=== PATIENT | male | born 1980 | race Caucasian/White ===

== ENCOUNTER 2023-08-20 16:10 | Emergency (ER) | payer OTHER ==
[~2023-08-20] VITALS: Ht 182.9 cm; Wt 68.0 kg
[~2023-08-20 16:10] MED LIST: ALBU90I INH; ALBU90OI INH; AMOX500 PO; AZIT250 PO; Amoxicillin500 MG PO; CODACEE120 PO; CRUTCH3 USE; CRUTCH3 XX; CRUTCH4 USE; CYCL10 PO; DIAZ5 PO; Esgic Tablet1 EACH PO; HYDACE5 PO; HYDR1TAB94 PO; IBUP400 PO; IBUP800 PO; Indomethacin50 MG PO; MAGIC MOUTHWASH; METO10 PO; NAPR220 PO; NAPR500 PO; Naprosyn500 MG PO; Norco 5-325 Ta1 EACH PO; PENVK500 PO; PRED15SY PO; PRED20 PO; PROM25 PO; Percocet 5-3251 EACH PO; Prednisone20 MG PO; RXONDA4ODT MM; RXPROM25 PO; Robaxin500 MG PO; SULTRIDS PO; TRAM50 PO; Ultram50 MG PO; Valium5 MG PO; Zofran8 MG PO
[2023-08-20 16:28] VITALS: BP 131/69
[2023-08-20 16:51] LABS: BASOPHILS ABSOLUTE AUTO 0.06 K/mm3 (0.00-0.23); BASOPHILS PERCENT AUTO 1 % (0-2); EOSINOPHILS ABSOLUTE AUTO 0.36 K/mm3 (0.00-0.68); EOSINOPHILS PERCENT AUTO 6 % (0-6); Hematocrit 34.8 % (37.0-53.0); Hemoglobin 11.1 g/dL (13.5-17.5); IMMATURE GRAN ABSOLUTE AUTO 0.03 K/mm3 (0.00-0.10); IMMATURE GRAN PERCENT AUTO 1 % (0-1); LYMPHOCYTES ABSOLUTE AUTO 1.47 K/mm3 (0.84-5.20); LYMPHOCYTES PERCENT AUTO 24 % (21-46); MONOCYTES ABSOLUTE AUTO 0.46 K/mm3 (0.16-1.47); MONOCYTES PERCENT AUTO 7 % (4-13); Mean Corpuscular HGB 26.9 pg (26.0-34.0); Mean Corpuscular HGB Conc 31.9 g/dL (31.5-36.5); Mean Corpuscular Volume 85 fL (80-100); Mean Platelet Volume 9.1 fL (9.1-12.4); NEUTROPHILS ABSOLUTE AUTO 3.86 K/mm3 (1.96-9.15); NEUTROPHILS PERCENT AUTO 62 % (41-73); Platelet Count 308 K/mm3 (150-400); RDW Coefficient Variation 16.1 % (11.7-14.2); RDW Standard Deviation 49.8 fL (35.1-46.3); Red Blood Cell Count 4.12 M/mm3 (4.30-5.90); White Blood Cell Count 6.24 K/mm3 (4.00-11.30)
[2023-08-20 17:02] LABS: Albumin, Blood 2.8 g/dL (3.4-5.0); Albumin/Globulin Ratio 0.8 (0.8-1.8); Bilirubin, Total 0.3 mg/dL (0.1-1.0); Bun/Creatinine Ratio 13.2 (12.0-20.0); Calcium, Blood 8.1 mg/dL (8.5-10.1); Creatinine, Blood 0.83 mg/dL (0.60-1.20); Globulin, Blood 3.4 g/dL (2.2-4.0); Potassium, Blood 3.3 mmol/L (3.5-5.5); Total Protein, Blood 6.2 g/dL (6.4-8.2)
[2023-08-20] MEDS ORDERED: Calcium Carbonate 500 MG Tab Chew PO ONE (17:10)
[2023-08-20] MEDS ORDERED: Potassium Chloride 20 MEQ TabCR PO ONE (17:10)
[2023-08-20] MEDS ORDERED: RX Prepack 2 Sprays Naloxone HCL 4 MG/SPRAY UD ONE (18:45)
== END 2023-08-20 19:10 | disposition home or self-care (01) ==
LOC: ER 16:10
PROVIDERS: Emergency Medicine
DX: T40.411A Poisoning by fentanyl or fentanyl analogs, accidental (unintentional), initial encounter (principal); F15.90 Other stimulant use, unspecified, uncomplicated; F17.200 Nicotine dependence, unspecified, uncomplicated
CPT/HCPCS: 80053; 85025; 93005; 93010; 99284-25; A9270

== ENCOUNTER 2023-09-04 13:22 | Emergency (ER) | payer SELFPAY ==
[~2023-09-04] VITALS: Ht 182.9 cm; Wt 77.1 kg
[2023-09-04 14:49] VITALS: BP 126/84
[2023-09-04] MEDS ORDERED: CEPH500 PO (15:33)
[2023-09-04] MEDS ORDERED: Bactrim Ds Tab1 EACH PO (15:33)
== END 2023-09-04 15:37 | disposition home or self-care (01) ==
LOC: ER 13:22
DX: L03.113 Cellulitis of right upper limb (principal); L02.413 Cutaneous abscess of right upper limb; J45.909 Unspecified asthma, uncomplicated; F17.200 Nicotine dependence, unspecified, uncomplicated; Z79.2 Long term (current) use of antibiotics
CPT/HCPCS: 99282

== ENCOUNTER 2023-09-08 23:04 | Emergency (ER) | payer SELFPAY ==
[~2023-09-08] VITALS: Ht 182.9 cm; Wt 79.4 kg
[~2023-09-08 23:04] MED LIST changes: +Bactrim Ds Tab1 EACH PO; +CEPH500 PO
[2023-09-08 23:14] VITALS: BP 155/97
[2023-09-08] MEDS ORDERED: Acetaminophen 500 MG Tab PO ONE (23:50)
[2023-09-08] MEDS ORDERED: Ibuprofen 600 MG Tab PO ONE (23:50)
== END 2023-09-09 00:01 | disposition home or self-care (01) ==
LOC: ER 23:04
DX: M25.511 Pain in right shoulder (principal); L98.499 Non-pressure chronic ulcer of skin of other sites with unspecified severity; F17.200 Nicotine dependence, unspecified, uncomplicated
CPT/HCPCS: 73030; 99284-25; A9270

== ENCOUNTER 2023-09-13 20:19 | Emergency (ER) | payer SELFPAY ==
[~2023-09-13] VITALS: Ht 182.9 cm; Wt 70.3 kg
[2023-09-13] MEDS ORDERED: HYDROmorphone HCl/Pf 1MG SYR IV ONE ×3 (20:25→22:55)
[2023-09-13 20:55] LABS: Hematocrit 37.3 % (37.0-53.0); Hemoglobin 12.7 g/dL (13.5-17.5); Mean Corpuscular HGB 27.7 pg (26.0-34.0); Mean Corpuscular Volume 81 fL (80-100); Mean Platelet Volume 8.9 fL (9.1-12.4); Platelet Count 395 K/mm3 (150-400); RDW Coefficient Variation 15.2 % (11.7-14.2); RDW Standard Deviation 45.2 fL (35.1-46.3); Red Blood Cell Count 4.59 M/mm3 (4.30-5.90); White Blood Cell Count 30.97 K/mm3 (4.00-11.30)
[2023-09-13] MEDS ORDERED: CefTRIAXone Sodium 2,000 MG in NS 100 ML IV ONE (21:20)
[2023-09-13 21:27] LABS: Alanine Aminotransfer (ALT/SGP 24 U/L (12-78); Albumin, Blood 1.8 g/dL (3.4-5.0); Albumin/Globulin Ratio 0.4 (0.8-1.8); Alk Phos 113 U/L (50-136); Anion Gap 15 mmol/L (3-11); Aspartate Aminotrans (AST/SGOT 42 U/L (12-37); Bilirubin, Total 0.4 mg/dL (0.1-1.0); Blood Urea Nitrogen 66 mg/dL (8-24); Bun/Creatinine Ratio 14.8 (12.0-20.0); C-REACTIVE PROTEIN, EXT RANGE >19.000 mg/dL (0.000-0.300); CO2, Blood 26 mmol/L (21-32); Calcium, Blood 8.4 mg/dL (8.5-10.1); Chloride, Blood 91 mmol/L (98-108); Creatinine, Blood 4.46 mg/dL (0.60-1.20); Globulin, Blood 5.1 g/dL (2.2-4.0); Glomerular Filtration Rate 16 (60-); Glucose, Blood 142 mg/dL (70-99); Potassium, Blood 4.3 mmol/L (3.5-5.5); Sodium, Blood 128 mmol/L (136-145); Total Protein, Blood 6.9 g/dL (6.4-8.2)
[2023-09-13] MEDS ORDERED: Vancomycin HCL 1,750 MG in NS 500 ML IV ONE (21:30)
[2023-09-13] MEDS ORDERED: NS 1,000 ML IV SCH (21:35)
[2023-09-13 21:47] LABS: BAND PERCENT MAN 2 % (0-8); BASOPHILS PERCENT MAN 0 % (0-2); EOSINOPHILS PERCENT MAN 1 % (0-6); LYMPHOCYTES ABSOLUTE MAN 0.92 K/mm3 (0.84-5.20); LYMPHOCYTES PERCENT MAN 3 % (21-46); MONOCYTES ABSOLUTE MAN 1.23 K/mm3 (0.16-1.47); MONOCYTES PERCENT MAN 4 % (4-13); NEUTROPHILS ABSOLUTE MAN 28.49 K/mm3 (1.96-9.15); SEG NEUTROPHILS PERCENT MAN 90 % (41-73); TOTAL CELLS COUNTED 100
[2023-09-13] MEDS ORDERED: LORazepam 1 MG Tab PO ONE (22:10)
[2023-09-13] MEDS ORDERED: Vancomycin HCL 1,500 MG in NS 250 ML IV ONE (22:20)
[2023-09-13 22:43] LABS: Source, Urine Clean Catch
[2023-09-13 22:46] LABS: Bilirubin, Urine Neg (Neg); Blood, Urine 4+ (Neg); Glucose Qualitative, Urine Neg (Neg); Ketones, Urine Neg (Neg); Leukocyte Esterase, Urine 3+ (Neg); Nitrite, Urine Pos (Neg); Protein, Urine 2+ (Neg); Urobilinogen, Urine 1+ (Normal)
[2023-09-13 22:55] LABS: Appearance, Urine Hazy (Clear); Color, Urine Yellow (P-Yellow)
[2023-09-13 22:57] LABS: Amorphous Light (0-Heavy); Bacteria Many /hpf; Squamous Epithelial Cells Few /hpf (Few)
[2023-09-14] VITALS: BP 113/70
== END 2023-09-14 00:30 ==
LOC: ER 20:19
PROVIDERS: Emergency Medicine
DX: A41.9 Sepsis, unspecified organism (principal); G06.1 Intraspinal abscess and granuloma; R33.9 Retention of urine, unspecified; N17.9 Acute kidney failure, unspecified; J45.909 Unspecified asthma, uncomplicated; Z87.891 Personal history of nicotine dependence
CPT/HCPCS: 36415; 51702; 72128; 72131; 80053; 81001; 83605; 85025; 85651; 86140; 87040; 87077; 87086; 87147; 87186; 96365-59; 96367-59; 96372-59; 96375-59; 96376; 99285-25; A9270; J0696; J1170; J3370; J7030; J7040; J7050